=== PATIENT | female | born 1965 | race Caucasian/White ===

== ENCOUNTER 2017-11-19 06:26 | Day surgery (SDC) | payer BC ==
[2017-11-19] MEDS ORDERED: CIPROFLOXACIN 400MG/D5W 200 ML IVPB (07:00)
[2017-11-19] MEDS ORDERED: PROPOFOL 20 ML (09:16)
[2017-11-19] MEDS ORDERED: NEOSTIGMINE 3 MG/3 ML SYRINGE (09:16)
[2017-11-19] MEDS ORDERED: SUCCINYLCHOLINE CHLORIDE 100 MG/5 ML SYG IV (09:16)
[2017-11-19] MEDS ORDERED: LIDOCAINE 2% (SDV) 5 ML INJ (09:16)
[2017-11-19] MEDS ORDERED: GLYCOPYRROLATE 0.4 MG INJ (09:16)
[2017-11-19] MEDS ORDERED: ROCURONIUM 50 MG INJ (09:16)
[2017-11-19] MEDS ORDERED: CIPROFLOXACIN 400MG/D5W 200 ML (09:22)
[2017-11-19] MEDS: IOHEXOL 300MG/ML 30 ML BTL (09:25)
[2017-11-19] MEDS ORDERED: DIPHENHYDRAMINE 50 MG INJ IV (09:30)
[2017-11-19] MEDS ORDERED: OXYCODONE/ACETAMINOPHEN (5/325) TAB PO (09:30)
[2017-11-19] MEDS ORDERED: MEPERIDINE 25 MG INJ IV (09:30)
[2017-11-19] MEDS ORDERED: FENTAnyl 50 MCG/ML VIAL IV ×3 (09:30)
[2017-11-19] MEDS ORDERED: HYDROmorphONE 1 MG/5 ML IV SYRINGE IV ×2 (09:30)
[2017-11-19] MEDS ORDERED: METOCLOPRAMIDE 10 MG INJ IV (09:30)
[2017-11-19] MEDS ORDERED: ONDANSETRON 4 MG INJ IV (09:30)
[2017-11-19] MEDS ORDERED: MIDAZOLAM 1 MG/ML 2 ML INJ IV (09:30)
[2017-11-19] MEDS ORDERED: EPHEDrine SULFATE 50 MG/5 ML SYG IV (09:30)
[2017-11-19] MEDS ORDERED: LABETALOL HCL 20MG INJ IV (09:30)
[2017-11-19] MEDS ORDERED: hydrALAzine 20 MG INJ IV (09:30)
[2017-11-19] MEDS ORDERED: FUROSEMIDE 20 MG INJ (09:47)
[2017-11-19] MEDS ORDERED: ONDANSETRON 4 MG INJ (09:50)
[2017-11-19] MEDS ORDERED: METOCLOPRAMIDE 10 MG INJ (09:50)
[2017-11-19] MEDS ORDERED: EPHEDrine SULFATE 50 MG/5 ML SYG (10:29)
[2017-11-19] MEDS: HYDROmorphONE 1 MG/5 ML IV SYRINGE IV (11:14)
[2017-11-19] MEDS: OXYCODONE/ACETAMINOPHEN (5/325) TAB PO (12:24)
== END 2017-11-19 12:58 | disposition home or self-care (01) ==
LOC: SDS 06:26
DX: N20.0 Calculus of kidney (principal); E11.40 Type 2 diabetes mellitus with diabetic neuropathy, unspecified; E03.9 Hypothyroidism, unspecified; E78.2 Mixed hyperlipidemia; E66.01 Morbid (severe) obesity due to excess calories; Z68.33 Body mass index [BMI] 33.0-33.9, adult; Z80.3 Family history of malignant neoplasm of breast; Z80.6 Family history of leukemia; Z80.7 Family history of other malignant neoplasms of lymphoid, hematopoietic and related tissues
CPT/HCPCS: 50590; 82962